=== PATIENT | male | born 1960 | race Caucasian/White ===

== ENCOUNTER 2017-02-09 20:08 | Emergency (ER) | payer OTHER ==
[~2017-02-09] VITALS: Ht 172.7 cm; Wt 81.6 kg
[~2017-02-09 20:08] MED LIST: [UNRECOGNIZED DRUG - REMARK]; [UNRECOGNIZED DRUG - REMARK]
--- NOTE | 2017-02-09 20:21 | NUR ---
BIB RA FROM [place] FOR SEIZURES, PATIENT STATES HE HAS HAD SEIZURES IN THE PAST, HE TAKES DILANTIN AND KEPPRA, PATIENT IS VERBALLY RESPONSIVE, BUT CONFUSED AT TIMES, POST ICTAL FROM SEIZURES. NO RESPIRATORY DISTRESS, STATES HE IS TIRED, NO MEDS GIVEN IN FIELD BY EMS, PATIENT IS PLACED ON MONITOR WITH MD AT BEDSIDE UPON ARRIVAL, ABLE TO AMBULATE WITH ASSISTANCE, NO OTHER MEDICAL COMPLAINTS AT THIS TIME.
[2017-02-09 20:45] LABS: BASOPHILS % (AUTO) 0.2 % (0.0-2.0); EOSINOPHILS % (AUTO) 0.2 % (0.0-6.0); HEMATOCRIT 43 % (39-51); HEMOGLOBIN 14.4 g/dL (13.5-17.5); LYMPHOCYTES # (AUTO) 0.9 /CMM (0.8-4.8); LYMPHOCYTES % (AUTO) 15.9 % (20.0-44.0); MEAN CORPUSCULAR HEMOGLOBIN 33 PG (26.0-33.0); MEAN CORPUSCULAR HGB CONC 34 g/dl (31.0-36.0); MEAN CORPUSCULAR VOLUME 97 fL (80-96); MONOCYTES # (AUTO) 0.7 /CMM (0.1-1.30); MONOCYTES % (AUTO) 11.9 % (2.0-12.0); NEUTROPHILS # (AUTO) 3.9 /CMM (1.8-8.9); NEUTROPHILS % (AUTO) 71.8 % (43.0-81.0); PLATELET COUNT (AUTO) 162 /CMM (150-450); RDW COEFFICIENT OF VARIATION 13.9 (11.5-15.0); WHITE BLOOD COUNT (AUTO) 5.5 K/uL (4.3-11.0)
[2017-02-09 20:57] LABS: PHENYTOIN (DILANTIN) 1.5 ug/ml (10.0-20.0)
[2017-02-09 21:01] LABS: ALANINE AMINOTRANSFERASE 60 U/L (12-78); ALBUMIN 3.8 g/dL (3.4-5.0); ALCOHOL, BLOOD < 3 mg/dL (0-0); ALKALINE PHOSPHATASE 192 U/L (46-116); ASPARTATE AMINOTRANSFERASE 82 U/L (15-37); BILIRUBIN,DIRECT 0.4 mg/dL (0.0-0.2); BILIRUBIN,TOTAL 1.4 mg/dL (0.2-1.0); CALCIUM, SERUM 9.3 mg/dL (8.5-10.1); CARBON DIOXIDE 21 mmol/L (21-32); CHLORIDE 99 mmol/L (98-107); CREATININE 1.2 mg/dL (0.6-1.3); GLUCOSE 127 mg/dL (74-106); SODIUM SERUM 140 mmol/L (136-145); TOTAL PROTEIN, SERUM 7.4 g/dL (6.4-8.2); UREA NITROGEN, BLOOD 6 mg/dL (7-18)
[2017-02-09] MEDS ORDERED: LEVETIRACETAM (250 MG) 250 MG TABLET PO ONE ×2 (21:26→21:30)
[2017-02-09] MEDS ORDERED: phenytoin SODIUM IV 1,000 MG in IV NS 0.9% 100 ML IV ONE (21:30)
[2017-02-09 22:04] VITALS: BP 145/81
--- NOTE | 2017-02-09 22:05 | NUR ---
Patient discharged to home in stable condition. Written and verbal after care instructions given. Patient verbalizes understanding of instruction. IV removed. Catheter intact and site benign. Pressure and 4x4 applied to site. No bleeding noted. GIVEN FOOD AND ABLE TO AMBULATE WITHOUT ANY ASSITANCE, PATIENT DISCHARGED WITHOUT ANY PROBLEMS
== END 2017-02-09 22:04 | disposition home or self-care (01) ==
LOC: ER 20:12
DX: R56.9 Unspecified convulsions (principal); E87.6 Hypokalemia; R74.0 Nonspecific elevation of levels of transaminase and lactic acid dehydrogenase [LDH]; S00.511A Abrasion of lip, initial encounter; S50.312A Abrasion of left elbow, initial encounter; S60.410A Abrasion of right index finger, initial encounter; S60.811A Abrasion of right wrist, initial encounter; S80.02XA Contusion of left knee, initial encounter; F31.9 Bipolar disorder, unspecified; F20.9 Schizophrenia, unspecified; F43.10 Post-traumatic stress disorder, unspecified; J45.909 Unspecified asthma, uncomplicated; F17.200 Nicotine dependence, unspecified, uncomplicated; Z59.0 Homelessness; Z88.5 Allergy status to narcotic agent; Z98.890 Other specified postprocedural states; X58.XXXA Exposure to other specified factors, initial encounter; Y93.89 Activity, other specified; Y92.89 Other specified places as the place of occurrence of the external cause; Y99.9 Unspecified external cause status
CPT/HCPCS: 36415; 70450-TC; 72125-TC; 80048-TC; 80076-TC; 80185-TC; 85025-TC; A4606; G0480; Z7610

== ENCOUNTER 2018-02-12 22:53 | Emergency (ER) | payer OTHER ==
[~2018-02-12] VITALS: Ht 167.6 cm; Wt 72.6 kg
--- NOTE | 2018-02-12 23:00 | NUR ---
PT PRESENTED TO THE ER WITH A C/O SI WITHOUT A PLAN. PT IS ALSO C/O BUE RASH AND ITCHINESS IN HIS GENITAL AREA.
[2018-02-12] MEDS ORDERED: GABA-534 PO (23:30)
[2018-02-12] MEDS ORDERED: HALO5TAB PO (23:30)
[2018-02-12] MEDS ORDERED: TRAZ-182 PO (23:30)
[2018-02-12] MEDS ORDERED: ATOR20TA PO (23:30)
[2018-02-12] MEDS ORDERED: DIVA-78 PO (23:30)
[2018-02-12] MEDS ORDERED: QUET100T PO (23:30)
[2018-02-12 23:34] LABS: BASOPHILS % (AUTO) 0.4 % (0.0-2.0); EOSINOPHILS % (AUTO) 2.2 % (0.0-6.0); HEMATOCRIT 38 % (39-51); LYMPHOCYTES # (AUTO) 1.2 /CMM (0.8-4.8); LYMPHOCYTES % (AUTO) 11.4 % (20.0-44.0); MEAN CORPUSCULAR HGB CONC 34 g/dl (31.0-36.0); MEAN CORPUSCULAR VOLUME 92 fL (80-96); MONOCYTES # (AUTO) 0.8 /CMM (0.1-1.30); MONOCYTES % (AUTO) 7.5 % (2.0-12.0); NEUTROPHILS # (AUTO) 8.6 /CMM (1.8-8.9); NEUTROPHILS % (AUTO) 78.5 % (43.0-81.0); PLATELET COUNT (AUTO) 199 /CMM (150-450); RDW COEFFICIENT OF VARIATION 16.2 (11.5-15.0); RED BLOOD CELL COUNT(AUTO) 4.19 MIL/uL (4.5-6.0); WHITE BLOOD COUNT (AUTO) 10.9 K/uL (4.3-11.0)
[2018-02-12 23:47] LABS: CALCIUM, SERUM 8.3 mg/dL (8.5-10.1); CARBON DIOXIDE 26 mmol/L (21-32); CHLORIDE 102 mmol/L (98-107); CREATININE 0.8 mg/dL (0.6-1.3); GLUCOSE 114 mg/dL (74-106); POTASSIUM 3.5 mmol/L (3.5-5.1); SODIUM SERUM 139 mmol/L (136-145); UREA NITROGEN, BLOOD 13 mg/dL (7-18)
[2018-02-12 23:50] LABS: APPEARANCE,URINE CLEAR (CLEAR); BILIRUBIN,URINE NEGATIVE (NEGATIVE); BLOOD, URINE NEGATIVE Ery/uL (NEGATIVE); COLOR,URINE YELLOW (YELLOW); KETONES,URINE NEGATIVE (NEGATIVE); LEUKOCYTE ESTERASE ,URINE NEGATIVE (NEGATIVE); NITRITE, URINE NEGATIVE (NEGATIVE); PH,URINE 6.5 (5.0-8.0); PROTEIN,URINE NEGATIVE (NEGATIVE); UGLUCOSE NEGATIVE (NEGATIVE); UROBILINOGEN,URINE 0.2 EU/dL (0.2)
[2018-02-12 23:53] LABS: ALANINE AMINOTRANSFERASE 19 U/L (12-78); ALBUMIN 3.3 g/dL (3.4-5.0); ALKALINE PHOSPHATASE 103 U/L (46-116); ASPARTATE AMINOTRANSFERASE 24 U/L (15-37); BILIRUBIN,DIRECT 0.1 mg/dL (0.0-0.2); BILIRUBIN,TOTAL 0.3 mg/dL (0.2-1.0); TOTAL PROTEIN, SERUM 6.8 g/dL (6.4-8.2)
[2018-02-12 23:56] LABS: ACETAMINOPHEN 0 ug/ml (10-30); ALCOHOL, BLOOD < 3 mg/dL (0-0)
--- NOTE | 2018-02-13 00:48 | NUR ---
DEVANTE GEE LCSW ARRIVED AND REVIEWED PT'S CHART. ART WENT TO THE BEDSIDE, BUT THE PT STATED THAT HE HAD TO GO TO THE BATHROOM. PT AMBULATED WITH A STEADY GAIT TO THE BATHROOM.
--- NOTE | 2018-02-13 01:15 | NUR ---
Patient discharged in stable condition. Written and verbal after care instructions given. Patient verbalizes understanding of instruction. PT IS WAITING FOR [facility] TO ORGANIZE TRANSPORT HOME.
--- NOTE | 2018-02-13 01:16 | NUR ---
SPOKE TO [facility] @ [place] [facility] TO ORGANIZE TRANSPORT HOME. WAS ABLE TO GET THE RUN SHEET AND SEE WHERE THE PT WAS PICKED UP FROM. JUVENAL TO CALL BACK WITH INFORMATION.
--- NOTE | 2018-02-13 01:35 | NUR ---
PT REC'D A TURKEY SANDWICH AND JUICE.
--- NOTE | 2018-02-13 01:41 | NUR ---
[facility] CALLED AND ETA FOR PT IS [phone].
--- NOTE | 2018-02-13 02:23 | NUR ---
AMBULANCE ARRIVED. REPORT GIVEN TO EMT. PT'S MEDICATIONS AND D/C PAPERWORK GIVEN TO EMT.
--- NOTE | 2018-02-13 02:36 | NUR ---
PT LEFT VIA AMBULANCE. VSS
[2018-02-13 02:37] VITALS: BP 108/65
== END 2018-02-13 02:38 | disposition home or self-care (01) ==
LOC: ER 22:55
DX: L73.9 Follicular disorder, unspecified (principal); R45.851 Suicidal ideations; F19.10 Other psychoactive substance abuse, uncomplicated; F31.9 Bipolar disorder, unspecified; F20.9 Schizophrenia, unspecified; F43.10 Post-traumatic stress disorder, unspecified; J45.909 Unspecified asthma, uncomplicated; F10.10 Alcohol abuse, uncomplicated; Y90.9 Presence of alcohol in blood, level not specified; F17.200 Nicotine dependence, unspecified, uncomplicated; Z59.0 Homelessness; Z88.5 Allergy status to narcotic agent; Z98.890 Other specified postprocedural states
CPT/HCPCS: 36415; 80048-TC; 80076-TC; 80305; 81000-TC; 85025-TC; A4606; G0480; Z7610

== ENCOUNTER 2018-02-17 10:52 | Emergency (ER) | payer OTHER ==
[~2018-02-17] VITALS: Ht 167.6 cm; Wt 68.0 kg
[~2018-02-17 10:52] MED LIST changes: +ATOR20TA PO; +DIVA-78 PO; +GABA-534 PO; +HALO5TAB PO; +QUET100T PO; +TRAZ-182 PO
[2018-02-17 11:02] VITALS: BP 106/68
--- NOTE | 2018-02-17 11:40 | NUR ---
Patient eloped from facility. ER MD notified.
== END 2018-02-17 12:08 | disposition home or self-care (01) ==
LOC: ER 10:59
DX: R53.1 Weakness (principal); F31.9 Bipolar disorder, unspecified; F20.9 Schizophrenia, unspecified; F43.10 Post-traumatic stress disorder, unspecified; F10.10 Alcohol abuse, uncomplicated; F17.200 Nicotine dependence, unspecified, uncomplicated; J45.909 Unspecified asthma, uncomplicated; Z98.890 Other specified postprocedural states; Z88.5 Allergy status to narcotic agent
CPT/HCPCS: 99283; 99406; A4606; Z7610

== ENCOUNTER 2018-02-27 18:54 | Emergency (ER) | payer OTHER ==
[~2018-02-27] VITALS: Ht 203.2 cm; Wt 74.8 kg
[~2018-02-27 18:54] MED LIST changes: -DIVA-78 PO; +DIVA500T7 PO; +TRAZ-144 PO; -TRAZ-182 PO
[2018-02-27] MEDS ORDERED: IV NS 0.9% 1,000 ML BAG IV ONE (19:00)
[2018-02-27] MEDS ORDERED: LORAZEPAM INJ 2 MG/ML VIAL IVP ONE (19:00)
[2018-02-27] MEDS ORDERED: LORAZEPAM INJ 2 MG/ML VIAL ONE (19:08)
--- NOTE | 2018-02-27 19:10 | NUR ---
ROGELIORA 41 FROM [facility]: WITNESSED SEIZURE. POSTICTAL. PT AO RR EVEN AND UNLABORED. NO SOB NOTED. NAD NOTE. NO NVD AT THIS TIME. PT GOWNED AND PLACED ON MONITOR WAITING FOR MD GARCIA.
[2018-02-27 19:17] LABS: BASOPHILS # (AUTO) 0.1 /CMM (0.0-0.2); BASOPHILS % (AUTO) 0.7 % (0.0-2.0); HEMATOCRIT 37 % (39-51); HEMOGLOBIN 11.9 g/dL (13.5-17.5); LYMPHOCYTES # (AUTO) 1.9 /CMM (0.8-4.8); LYMPHOCYTES % (AUTO) 16.4 % (20.0-44.0); MEAN CORPUSCULAR HEMOGLOBIN 29 PG (26.0-33.0); MEAN CORPUSCULAR HGB CONC 33 g/dl (31.0-36.0); MEAN CORPUSCULAR VOLUME 90 fL (80-96); MONOCYTES # (AUTO) 0.5 /CMM (0.1-1.30); MONOCYTES % (AUTO) 4.5 % (2.0-12.0); NEUTROPHILS # (AUTO) 8.7 /CMM (1.8-8.9); NEUTROPHILS % (AUTO) 76.4 % (43.0-81.0); PLATELET COUNT (AUTO) 345 /CMM (150-450); RDW COEFFICIENT OF VARIATION 16.1 (11.5-15.0); RED BLOOD CELL COUNT(AUTO) 4.07 MIL/uL (4.5-6.0); WHITE BLOOD COUNT (AUTO) 11.4 K/uL (4.3-11.0)
--- NOTE | 2018-02-27 19:22 | NUR ---
CALLED [facility], SPOKE WITH THE HUMAN RESOURCE MANAGEMENT INSTRUCTOR TO INFORM HER THAT PT IS WEARING [facility] WRISTBANDS, SHE INFORMED ME THERE IS NO ESCAPEES AND THAT SOMETIMES THE PT'S JUST DONT REMOVE THIER WRISTBANDS AFTER BEING RELEASED.
[2018-02-27 19:27] LABS: CALCIUM, SERUM 8.8 mg/dL (8.5-10.1); CARBON DIOXIDE 25 mmol/L (21-32); CHLORIDE 101 mmol/L (98-107); CREATININE 0.8 mg/dL (0.6-1.3); GLUCOSE 103 mg/dL (74-106); POTASSIUM 3.9 mmol/L (3.5-5.1); SODIUM SERUM 139 mmol/L (136-145); UREA NITROGEN, BLOOD 9 mg/dL (7-18)
[2018-02-27 19:29] LABS: ALCOHOL, BLOOD < 3 mg/dL (0-0)
[2018-02-27 19:34] LABS: PHENOBARBITAL 0 ug/ml (15-39); PHENYTOIN (DILANTIN) < 0.5 ug/ml (10.0-20.0); VALPROIC ACID < 3 ug/mL (50-100)
[2018-02-27] MEDS ORDERED: LEVETIRACETAM (500MG) 1,000 MG in IV NS 0.9% 100 ML IV SCH (21:00)
[2018-02-27] MEDS ORDERED: LEVETIRACETAM (500MG) 500 MG/5 ML VIAL IV ONE (21:07)
--- NOTE | 2018-02-27 22:03 | NUR ---
UNABLE TO GET URINE AT THIS TIME. DR. KAREN ECHEVARRIA.
--- NOTE | 2018-02-27 23:30 | NUR ---
IV removed. Catheter intact and site benign. Pressure and 4x4 applied to site. No bleeding noted.
--- NOTE | 2018-02-27 23:46 | NUR ---
PT AOX3 AMBULATORY WITH STEADY GAIT.
--- NOTE | 2018-02-27 23:58 | NUR ---
Patient discharged to home in stable condition. Written and verbal after care instructions given. Patient verbalizes understanding of instruction. ambulatory with a steady gait. no active seziures during stay here.
[2018-02-28] VITALS: BP 117/68
== END 2018-02-28 00:01 | disposition home or self-care (01) ==
LOC: ER 18:57
DX: R56.9 Unspecified convulsions (principal); Z88.5 Allergy status to narcotic agent; F10.10 Alcohol abuse, uncomplicated; Y90.1 Blood alcohol level of 20-39 mg/100 ml; F17.200 Nicotine dependence, unspecified, uncomplicated
CPT/HCPCS: 36415; 70450; 80048; 80164; 80184; 80185; 82962; 85025; 93005; 96365; 96375; 99285; A4606; G0480; J1953 ×2; J2060; J7030 ×3; Z7610

== ENCOUNTER → 2018-03-25 | Emergency (ER) | payer OTHER ==
[~2018-03-25] VITALS: Ht 172.7 cm; Wt 68.0 kg
[~2018-03-25] MED LIST changes: +DIVA-78 PO; -DIVA500T7 PO; +IV NS 0.9% 1,000 ML BAG IV ONE; -TRAZ-144 PO; +TRAZ-182 PO
[2018-03-25 20:01] LABS: CALCIUM, SERUM 8.3 mg/dL (8.5-10.1); CREATININE 0.8 mg/dL (0.6-1.3); POTASSIUM 3.5 mmol/L (3.5-5.1)
[2018-03-25 20:05] LABS: ALBUMIN 3.6 g/dL (3.4-5.0); BILIRUBIN,DIRECT 0.1 mg/dL (0.0-0.2); BILIRUBIN,TOTAL 0.4 mg/dL (0.2-1.0); TOTAL PROTEIN, SERUM 7.2 g/dL (6.4-8.2)
[2018-03-25 20:07] LABS: HEMATOCRIT 38 % (39-51); HEMOGLOBIN 12.6 g/dL (13.5-17.5); MEAN CORPUSCULAR HEMOGLOBIN 30 PG (26.0-33.0); MEAN CORPUSCULAR HGB CONC 33 g/dl (31.0-36.0); MEAN CORPUSCULAR VOLUME 89 fL (80-96); PLATELET COUNT (AUTO) 271 /CMM (150-450); RDW COEFFICIENT OF VARIATION 17.6 (11.5-15.0); RED BLOOD CELL COUNT(AUTO) 4.27 MIL/uL (4.5-6.0); WHITE BLOOD COUNT (AUTO) 6.6 K/uL (4.3-11.0)
--- NOTE | 2018-03-25 20:44 | NUR ---
PT INTOXICATED, WILL OPEN EYES IF CALLED BY HIS NAME Addendum: 03/25/18 at 2124 by TODD Amendment undone in EDM - 03/25/18 at 2125 by TODD IV INFUSING WELL. URINE COLLECTED & SENT TO LAB.
--- NOTE | 2018-03-25 21:26 | NUR ---
PT DC'D SALINE LOCK BY HIMSELF & WALKED OUT. 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 Addendum: 03/25/18 at 2136 by TODD PT STS " THE DOCTOR SAID I CAN GO ", PT LEFT WITHOUT SIGNING ACI. AWARE.
[2018-03-25 21:39] VITALS: BP 122/70
[2018-03-25 21:55] LABS: EOSINOPHILS % (MANUAL) 2 % (0-4); LYMPHOCYTES % (MANUAL) 21 % (16-48); MONOCYTES % (MANUAL) 10 % (0-11.0); NEUTROPHILS % (MANUAL) 67 (42-76)
== END | disposition home or self-care (01) ==
LOC: ER 18:52
DX: S00.81XA Abrasion of other part of head, initial encounter (principal); F10.10 Alcohol abuse, uncomplicated; F17.200 Nicotine dependence, unspecified, uncomplicated; Z88.6 Allergy status to analgesic agent; Z79.899 Other long term (current) drug therapy; W19.XXXA Unspecified fall, initial encounter; Y93.89 Activity, other specified; Y92.89 Other specified places as the place of occurrence of the external cause; Y99.8 Other external cause status; Y90.7 Blood alcohol level of 200-239 mg/100 ml
CPT/HCPCS: 36415; 70450; 70486; 71045; 72125; 80048; 80076; 80305; 82962; 85025; 99285; A4606; G0480; J7030; Z7610

== ENCOUNTER 2018-04-03 08:26 | Emergency (ER) | payer OTHER ==
[~2018-04-03] VITALS: Ht 167.6 cm; Wt 72.6 kg
[~2018-04-03 08:26] MED LIST changes: -IV NS 0.9% 1,000 ML BAG IV ONE
[2018-04-03] MEDS ORDERED: LORAZEPAM INJ 2 MG/ML VIAL ONE (08:38)
--- NOTE | 2018-04-03 08:43 | NUR ---
PT REC'D TO ER VIA EMS HAD A SEIZURE THIS MORNING ETOH . HX FAMILY CALLED 911. LEFT AC 18G HEPLOCKED . LABS DRAWN SENT TO LAB ATIVAN 1 MG IVP PER MD ORDER GIVEN AWAITING EVALUATION BY ER PROVIDER.
[2018-04-03 08:56] LABS: HEMATOCRIT 39 % (39-51); HEMOGLOBIN 12.7 g/dL (13.5-17.5); MEAN CORPUSCULAR HEMOGLOBIN 30 PG (26.0-33.0); MEAN CORPUSCULAR HGB CONC 33 g/dl (31.0-36.0); MEAN CORPUSCULAR VOLUME 92 fL (80-96); PLATELET COUNT (AUTO) 261 /CMM (150-450); RDW COEFFICIENT OF VARIATION 18.8 (11.5-15.0); RED BLOOD CELL COUNT(AUTO) 4.23 MIL/uL (4.5-6.0)
[2018-04-03 08:57] LABS: CALCIUM, SERUM 8.5 mg/dL (8.5-10.1); CREATININE 0.9 mg/dL (0.6-1.3); POTASSIUM 3.6 mmol/L (3.5-5.1)
[2018-04-03] MEDS ORDERED: LORAZEPAM INJ 2 MG/ML VIAL IVP ONE (09:00)
[2018-04-03 10:14] VITALS: BP 137/71
--- NOTE | 2018-04-03 10:15 | NUR ---
Patient discharged to home in stable condition. Written and verbal after care instructions given. Patient verbalizes understanding of instruction.IV removed. Catheter intact and site benign. Pressure and 4x4 applied to site. No bleeding noted.
[2018-04-03 11:57] LABS: BAND % (MANUAL) 1 % (0.0-5.0); LYMPHOCYTES % (MANUAL) 16 % (16-48); MONOCYTES % (MANUAL) 6 % (0-11.0); NEUTROPHILS % (MANUAL) 77 (42-76)
== END 2018-04-03 10:16 | disposition home or self-care (01) ==
LOC: ER 08:29
DX: R56.9 Unspecified convulsions (principal); F17.200 Nicotine dependence, unspecified, uncomplicated; F10.10 Alcohol abuse, uncomplicated; Z79.899 Other long term (current) drug therapy; Z88.5 Allergy status to narcotic agent
CPT/HCPCS: 36415; 80048; 85025; 96374; 99284; A4606; J2060; Z7610

== ENCOUNTER 2018-05-09 08:04 | Emergency (ER) | payer OTHER ==
[~2018-05-09] VITALS: Ht 167.6 cm; Wt 72.6 kg
--- NOTE | 2018-05-09 08:10 | NUR ---
BIBRA 89 C/O SEIZURE NO ORAL TRAUMA, LAC ON THE NOSEBRIDGE, AT=[id number], ADMIT TO DRINKING ETOH EVERYDAY, LAST ONE YESTERDAY. NAD NOTED, VSS, RESP EVEN AND UNLABORED, PT WAS PUT ON MONITOR, WAITING FOR MD GARCIA
[2018-05-09] MEDS ORDERED: Magnesium 1GM/D5W 100ML PREMIX 100 ML IV ONE (08:29)
[2018-05-09] MEDS ORDERED: Thiamine 100 MG in IV D5W 50 ML IV SCH (08:30)
[2018-05-09] MEDS ORDERED: IV NS 0.9% 1,000 ML BAG IV ONE (08:30)
[2018-05-09] MEDS ORDERED: LORAZEPAM INJ 2 MG/ML VIAL IV ONE (08:30)
[2018-05-09 08:32] LABS: HEMATOCRIT 40 % (39-51); HEMOGLOBIN 12.8 g/dL (13.5-17.5); MEAN CORPUSCULAR HEMOGLOBIN 29 PG (26.0-33.0); MEAN CORPUSCULAR HGB CONC 32 g/dl (31.0-36.0); MEAN CORPUSCULAR VOLUME 92 fL (80-96); PLATELET COUNT (AUTO) 254 /CMM (150-450); RDW COEFFICIENT OF VARIATION 16.9 (11.5-15.0); RED BLOOD CELL COUNT(AUTO) 4.34 MIL/uL (4.5-6.0); WHITE BLOOD COUNT (AUTO) 6.6 K/uL (4.3-11.0)
[2018-05-09] MEDS ORDERED: LORAZEPAM INJ 2 MG/ML VIAL ONE (08:33)
[2018-05-09 08:37] LABS: BASOPHILS % (AUTO) 0.5 % (0.0-2.0); EOSINOPHILS % (AUTO) 0.7 % (0.0-6.0); LYMPHOCYTES # (AUTO) 0.9 /CMM (0.8-4.8); LYMPHOCYTES % (AUTO) 12.7 % (20.0-44.0); MONOCYTES # (AUTO) 0.5 /CMM (0.1-1.30); NEUTROPHILS # (AUTO) 5.5 /CMM (1.8-8.9); NEUTROPHILS % (AUTO) 79.1 % (43.0-81.0)
[2018-05-09 08:42] LABS: CALCIUM, SERUM 8.7 mg/dL (8.5-10.1); CARBON DIOXIDE 24 mmol/L (21-32); CHLORIDE 100 mmol/L (98-107); CREATININE 0.9 mg/dL (0.6-1.3); GLUCOSE 133 mg/dL (74-106); SODIUM SERUM 139 mmol/L (136-145); UREA NITROGEN, BLOOD 7 mg/dL (7-18)
[2018-05-09] MEDS: Magnesium 1GM/D5W 100ML PREMIX 100 ML IV SCH ×2 (08:43→10:00)
--- NOTE | 2018-05-09 08:43 | NUR ---
PATIENT TRANSPORTED FOR CT
[2018-05-09 08:48] LABS: ALANINE AMINOTRANSFERASE 32 U/L (12-78); ALBUMIN 3.6 g/dL (3.4-5.0); ALCOHOL, BLOOD < 3 mg/dL (0-0); ALKALINE PHOSPHATASE 119 U/L (46-116); ASPARTATE AMINOTRANSFERASE 48 U/L (15-37); BILIRUBIN,DIRECT 0.1 mg/dL (0.0-0.2); BILIRUBIN,TOTAL 0.6 mg/dL (0.2-1.0); INR 0.96 (0.87-1.13); TOTAL PROTEIN, SERUM 7.5 g/dL (6.4-8.2)
[2018-05-09 08:49] LABS: TROPONIN I < 0.017 ng/mL (0.00-0.056)
[2018-05-09] MEDS ORDERED: LIDOCAINE VISCOUS 2% UD 15 ML UDC ONE (09:02)
[2018-05-09] MEDS ORDERED: AMIODARONE 150 MG/3 ML VIAL IV ONE ×2 (10:00→10:17)
--- NOTE | 2018-05-09 10:30 | NUR ---
IV removed on L ac and R hand. Catheters intact and sites benign. Pressure and 4x4 applied to sites. No bleeding noted.
--- NOTE | 2018-05-09 10:55 | NUR ---
Patient does not wish to proceed with medical care recommended by Dr. Christina. Patient given information related to possible complications, up to and including , which could occur as a result of leaving the hospital at this time. Patient verbalizes understanding of risks involved due to leaving against medical advice. Patient has signed AMA form.
[2018-05-09 11:00] VITALS: BP 139/91
== END 2018-05-09 11:09 | disposition left against medical advice (07) ==
LOC: ER 08:06
DX: I48.91 Unspecified atrial fibrillation (principal); R56.9 Unspecified convulsions; F10.20 Alcohol dependence, uncomplicated; F17.200 Nicotine dependence, unspecified, uncomplicated; Y90.0 Blood alcohol level of less than 20 mg/100 ml; Z91.018 Allergy to other foods; Z88.5 Allergy status to narcotic agent
CPT/HCPCS: 36415; 70450-TC; 80048-TC; 80076-TC; 83735-TC; 84484-TC; 85025-TC; 85730-TC; A4606; G0480; J0282; J2060; J3411; J3475; J7030; J7060; Z7610